=== PATIENT | female | born 1950 | race Caucasian/White ===

== ENCOUNTER → 2023-06-25 12:42 | Outpatient (REF) | payer MEDICARE, OTHER, SELFPAY | LOC: RAD 12:42 | PROVIDERS: ATTENDING PHYSICIAN Surgery Vascular Surgery; FAMILY PHYSICIAN Family Medicine | DX: I77.0 Arteriovenous fistula, acquired (principal) | CPT/HCPCS: 93990 ==

== ENCOUNTER → 2023-07-27 08:10 | Outpatient (REF) | payer MEDICARE, OTHER, SELFPAY | LOC: DHCBC MAIN 08:10 | PROVIDERS: ATTENDING PHYSICIAN Internal Medicine Cardiovascular Disease; FAMILY PHYSICIAN Family Medicine | DX: I50.30 Unspecified diastolic (congestive) heart failure (principal); I34.0 Nonrheumatic mitral (valve) insufficiency | CPT/HCPCS: 93306 ==

== ENCOUNTER → 2023-10-18 09:00 | Outpatient (REF) | payer MEDICARE, OTHER, SELFPAY | LOC: RAD 09:00 | PROVIDERS: ATTENDING PHYSICIAN Surgery Vascular Surgery; FAMILY PHYSICIAN Family Medicine | DX: I77.0 Arteriovenous fistula, acquired (principal) | CPT/HCPCS: 93990 ==

== ENCOUNTER → 2023-10-30 10:55 | Outpatient (REF) | payer MEDICARE, OTHER, SELFPAY | LOC: RAD 10:55 | PROVIDERS: ATTENDING PHYSICIAN Surgery Vascular Surgery; FAMILY PHYSICIAN Family Medicine | DX: T82.898A Other specified complication of vascular prosthetic devices, implants and grafts, initial encounter (principal); N18.6 End stage renal disease; I77.0 Arteriovenous fistula, acquired; Z99.2 Dependence on renal dialysis; J96.01 Acute respiratory failure with hypoxia | CPT/HCPCS: 93970 ==

== ENCOUNTER 2023-11-01 19:43 | Inpatient (IN) | payer MEDICARE, OTHER, SELFPAY ==
[2023-11-01] VITALS (24 sets, daily range): BP systolic 0–182; BP diastolic 51–122; BMI 35.7
[2023-11-01] MEDS: PERIDEX 0.12% ORAL RINSE 15 ML PO (09:58)
[2023-11-01] MEDS: BACTROBAN NASAL 1 GRAM NASAL (09:59)
[2023-11-01] MEDS: NSS 500 IV (10:08)
[2023-11-01 10:18] LABS: Glucose - Point of Care 128 mg/dl (70-99)
[2023-11-01 10:27] LABS: Hematocrit 31.1 % (37.0-47.0); Mean Corp Hgb Conc. 32.2 g/dL (33.0-37.0); Mean Corpuscular Hgb 31.6 pg (27.0-31.0); Mean Corpuscular Volume 98.4 fL (81.0-99.0); Mean Platelet Volume 9.9 fL (7.4-10.4); Platelet Count 221 10^3/uL (130-400); Red Blood Cell Count 3.16 10^6/uL (4.20-5.40); Red Cell Dist. Width 16.6 % (11.5-14.5); White Blood Cell Count 10.5 10^3/uL (4.8-10.8)
[2023-11-01 10:36] LABS: APTT 31.8 Sec (23.4-35.0); INR 1.09; PT 14.2 Sec (11.4-14.6)
[2023-11-01 10:37] LABS: Blood Urea Nitrogen 22 mg/dl (7-17); Calcium 9.2 mg/dl (8.4-10.2); Carbon Dioxide 27 mmol/L (22-30); Chloride 97 mmol/L (98-107); Estimated Creatinine Clearance 22 ml/min; Glucose 125 mg/dl (70-99); Potassium 3.8 mmol/L (3.5-5.1); Sodium 134 mmol/L (135-145); eGFR 20.55
--- NOTE | 2023-11-01 13:45 | W.SUR.PREOP ---
Pre-Operative Surgical Note
-
I have examined this patient prior to the performance of the scheduled procedure.
The patient's condition is unchanged from the time of the current History and
Physical and the patient is able to undergo the scheduled procedure.
[2023-11-01 16:35] LABS: Glucose - Point of Care 125 mg/dl (70-99)
--- NOTE | 2023-11-01 17:36 | W.SUR.POST ---
Surgical Immediate Post Op
Note
Pre Op Diagnosis: Steal syndrome
Post Op Diagnosis: Same
Procedure Performed: Left upper extremity DRIL procedure, on table LUE diagnostic arteriogram
Primary Surgeon: Eusebio
Assists: MARK ANTHONY Brown and MARK ANTHONY Villagomez
Anesthesia: LMA
Estimated Blood Loss: 30 cc
Fluids: See anesthesia flowsheet
Drains/Shunts: MATILDA drain right groin
Specimens/Cultures: None
Doppler/Duplex/Angio (Y/N): Y
Complications: None
Operative Findings: + Thrill, palpable radial pulse
[2023-11-01 18:05] LABS: Glucose - Point of Care 157 mg/dl (70-99)
[2023-11-01 18:57] LABS: Hematocrit 29.8 % (37.0-47.0); Hemoglobin 9.4 g/dL (12.0-16.0); Mean Corp Hgb Conc. 31.5 g/dL (33.0-37.0); Mean Corpuscular Hgb 30.9 pg (27.0-31.0); Mean Platelet Volume 9.4 fL (7.4-10.4); Platelet Count 200 10^3/uL (130-400); Red Blood Cell Count 3.04 10^6/uL (4.20-5.40); Red Cell Dist. Width 16.5 % (11.5-14.5); White Blood Cell Count 15.5 10^3/uL (4.8-10.8)
--- NOTE | 2023-11-01 19:00 | SUR.PHASEI ---
Dr. Kaplan notified pt with total of 200ml bloody drainage from right upper leg MATILDA drain. Awaiting further orders
[2023-11-01 19:08] LABS: INR 1.22; PT 15.4 Sec (11.4-14.6)
[2023-11-01 19:11] LABS: APTT 112.5 Sec (23.4-35.0)
--- NOTE | 2023-11-01 19:20 | SUR.PHASEI ---
Dr. Kaplan updated via phone on pt condition, Heparin held as ordered and MATILDA drain suction decreased per Dr. Kaplan. Per Dr. Kaplan, pt stable for discharge to ICU.
[2023-11-01] MEDS: NSS 1000 IV (19:21)
[2023-11-01 20:02] LABS: Blood Urea Nitrogen 26 mg/dl (7-17); Calcium 8.9 mg/dl (8.4-10.2); Carbon Dioxide 25 mmol/L (22-30); Chloride 98 mmol/L (98-107); Estimated Creatinine Clearance 19 ml/min; Glucose 160 mg/dl (70-99); Sodium 134 mmol/L (135-145); eGFR 17.84
[2023-11-01] MEDS: CRESTOR 10 MG PO (21:44)
--- NOTE | 2023-11-01 22:11 | PTCARENOTE ---
pt arrived to floor postop DRIL procedure, pt AAOx3, denies pain, neurovascular checks per order, +pulses, denies numbness and tingling, SR on monitor, refused BP med, 2L NC, denies SOB, sips of clears tolerated, lungs diminished, HOB flat at the
moment, howell to be removed POD #2, diminished urine output per pt, on dialysis, R chest wall port and L arm AV fistula +B/T, NS running at 80ml/hr, L arm surgical site ecchymotic with +1 edema, mild drainage noted, R groin with MATILDA drain, SUKHWINDER and
margarette wrapped. on assessment margarette wrap was removed and within 15 minutes bloody drainage was noted on R thigh dressing and firm non discolored area to the Right of the dressing was noted, PHOTOGEOLOGIST made aware and site was marked. called for updates and was
informed of this new finding, no new orders at this time. was at bedside, pt oriented to room, and call herrera in reach.
[2023-11-02] VITALS (57 sets, daily range): BP systolic 91–146; BP diastolic 42–89; BMI 35.9
--- NOTE | 2023-11-02 00:14 | PTCARENOTE ---
no changes from prior assessment, +pulses, denies pain and SOB, call herrera in reach.
[2023-11-02] MEDS: NSS 1000 IV (03:34)
[2023-11-02 03:36] LABS: Hematocrit 24.3 % (37.0-47.0); Hemoglobin 7.6 g/dL (12.0-16.0); Mean Corp Hgb Conc. 31.3 g/dL (33.0-37.0); Mean Corpuscular Hgb 31.5 pg (27.0-31.0); Mean Corpuscular Volume 100.8 fL (81.0-99.0); Mean Platelet Volume 10.3 fL (7.4-10.4); Platelet Count 200 10^3/uL (130-400); Red Blood Cell Count 2.41 10^6/uL (4.20-5.40); Red Cell Dist. Width 16.2 % (11.5-14.5); White Blood Cell Count 16.7 10^3/uL (4.8-10.8)
[2023-11-02 03:47] LABS: INR 1.25; PT 15.8 Sec (11.4-14.6)
[2023-11-02 03:48] LABS: APTT 30.1 Sec (23.4-35.0)
[2023-11-02 03:59] LABS: Blood Urea Nitrogen 31 mg/dl (7-17); Carbon Dioxide 25 mmol/L (22-30); Chloride 100 mmol/L (98-107); Estimated Creatinine Clearance 17 ml/min; Glucose 145 mg/dl (70-99); Magnesium 1.9 mg/dl (1.6-2.3); Phosphorus 5.5 mg/dl (2.5-4.5); Potassium 4.4 mmol/L (3.5-5.1); Sodium 133 mmol/L (135-145); eGFR 15.72
--- NOTE | 2023-11-02 04:43 | PTCARENOTE ---
no changes from prior assessment
--- NOTE | 2023-11-02 07:16 | CON.INTV ---
Consultation
Consultation Request
Date/Time Consultation Requested: 11/01/23
Date/Time Consultation Performed: 11/02/23
Performing Provider: Joy
Reason for Consultation: Critical Care
Medical History
-
History of Present Illness:
Patient is a 73-year-old female with previous history of CHF, diabetes, hypertension, uterine cancer, CKD stage V/diabetic nephropathy status post LUE AVF placement 05/2022 on HD, with chronic complaints of left hand pain (worsened while on HD)
suspected of having steal syndrome. Underwent elective distal revascularization interval ligation (DRIL) of left upper extremity 11/01/2023. Postoperatively transferred to ICU for further management.
.
Past Medical History
Past Medical History: Other (see below)
Social History
Tobacco: Non-smoker
Alcohol: None
Drug: None
Family History
Family History: Reviewed & Not Pertinent
Allergies / Home Medications
Allergies
Allergy/AdvReac Type Severity Reaction Status Date / Time
adhesive tape Allergy Rash Verified 11/01/23 19:51
metformin AdvReac cramps in Verified 11/01/23 19:51
stomach
morphine AdvReac Nausea Verified 11/01/23 19:51
Home Medications
�Medication �Instructions �Recorded �Confirmed �Last Taken �Type
methimazole 5 mg tablet 2.5 mg PO DAILY Thyroid 02/20/18 11/01/23 10/31/23 09:00 History
carvedilol 25 mg tablet (Coreg) 3.125 mg PO BID PRN Heart 12/31/20 11/01/23 2 Days Ago History
disease/condition ~10/30/23
rosuvastatin 10 mg tablet 10 mg PO QPM High cholesterol 12/31/20 11/01/23 10/31/23 21:00 History
vit C 250 mg-vit E 90 mg-zinc 40 1 ea PO DAILY Eye condition 12/31/20 11/01/23 10/31/23 09:00 History
mg-copper 1 [id number]
capsule (PreserVision AREDS-2)
aspirin 81 mg tablet,delayed 81 mg PO DAILY Blood clot 08/17/21 11/01/23 10/31/23 08:00 Rx
release (Yoni Low Dose Aspirin) prevention/tx ##0
cholecalciferol (vitamin D3) 125 125 mcg PO MOWEFR Supplement 06/02/22 11/01/23 10/31/23 09:00 History
mcg (5,000 unit) tablet (Vitamin
D3)
sennosides 8.6 mg-docusate sodium 1 tab-cap PO BIDPRN PRN 06/02/22 11/01/23 3 Weeks Ago History
50 mg tablet constipation ~10/11/23
calcitriol 0.25 mcg capsule 0.25 mcg PO Q48H@0800 Kidney 05/03/23 11/01/23 10/31/23 09:00 History
Disease
calcium acetate 667 mg tablet 667 mg PO 1700 Kidney Disease 05/03/23 11/01/23 10/31/23 17:00 History
furosemide 40 mg tablet (Lasix) 20 mg PO SUTUTHSA 10/26/23 11/01/23 10/30/23 09:00 History
polyethylene glycol 3350 17 gram 17 g PO DAILY 10/26/23 11/01/23 10/31/23 09:00 History
oral powder packet (Miralax)
sertraline 100 mg tablet 100 mg PO DAILY 10/26/23 11/01/23 10/31/23 14:00 History
Review of Systems
-
History Source: Patient
All other systems: Negative unless noted
Vitals / Labs / Diagnostic Testing
Vital Signs
Temp Pulse Resp BP Pulse Ox
97.7 F 93 18 121/51 97
11/02/23 03:06 11/02/23 06:30 11/02/23 06:30 11/02/23 06:00 11/02/23 06:30
Lab Data
11/02/23 02:54
11/02/23 02:54
Laboratory Results
11/01/23 11/01/23 11/02/23
10:10 18:52 02:54
PT 14.2 15.4 H 15.8 H
INR 1.09 1.22 1.25
APTT 31.8 112.5 H 30.1
Diagnostic Testing:
Physical Exam
-
HEENT: Normocephalic, Anicteric and Moist Mucous Membranes
Cardiovascular: S1/S2 and Regular Rhythm
Respiratory: Clear and Non-Labored Respirations
GI: Soft, Non Distended and Non Tender
Neurology: Awake, Alert, Oriented, AO x 3 and No Motor Deficits
Skin: Warm, Dry and Good Color
General: Comfortable and Other (NAD)
Assessment
-
Patient is a 73-year-old female with previous history of CHF, diabetes, hypertension, uterine cancer, CKD stage V/diabetic nephropathy status post LUE AVF placement 05/2022 on HD, with chronic complaints of left hand pain (worsened while on HD)
suspected of having steal syndrome. Underwent elective distal revascularization interval ligation (DRIL) of left upper extremity 11/01/2023. Postoperatively transferred to ICU for further management.
Steal syndrome s/p Left upper extremity DRIL procedure, LUE diagnostic arteriogram 11/01/23
Leukocytosis, likely postop
Postoperative anemia
Hyponatremia, mild
Hyperglycemia
Conditions present SHORT ORDER COOK
Recently diagnosed uterine cancer
CHF
Hyperlipidemia
Allergic rhinitis
Type 2 diabetes
Hypertension
CAD
Thoracic aortic atherosclerosis
Hypothyroidism/multinodular goiter
CKD stage IV on HD status post AVF placement 06/07/2022
Diabetic nephropathy
Colon cancer stage I status post colectomy on 04/04/2021
Right parotidectomy, facial nerve 03/07/2018
Ostomy reversal 10/2021
Hysterectomy and BLO 08/2023
Obesity, BMI 35
Plan
Patient is s/p DRIL by vascular surgery service, POD #1
Continue observation following procedure
Follow neurovascular checks per protocol
Follow BP monitoring and parameters as set by primary team
Cardiac history noted
Can add midodrine for HD
Monitor on telemetry
Pain control per protocol
RASS goal 0
No prior history of pulmonary disease
CXR reviewed indicating no acute disease
No prior PFTs for review
Encouraged IS
Diet advancement per protocol
Aspiration precautions
GI prophylaxis if indicated for stress ulcer prevention in the critically ill
ESRD on HD
Renal consult obtained, HD planning today
Replete electrolytes as needed
No signs/symptoms suspicious for infectious etiology at this time
Will observe off antibiotics for now
Follow temperatures/CBC
Hb and platelets postoperatively stable
DVT prophylaxis recommended if not contraindicated based on procedural history -- heparin SQ and mechanical SCDs
Encouraged OOB/PT/OT/ambulation once cleared by surgical team
We will follow
Diagnostic Data
Chest X-Ray: 11/02/23- Low lung volumes. No acute cardiopulmonary process.
CT Scan: CAP 05/16/22- IMPRESSION:
1). There is partial colonic resection with bowel anastomosis at the rectosigmoid junction
2). There is no evidence of metastatic disease or adenopathy in the chest abdomen or pelvis.
3). The stability of the 2.5 mm perifissural pulmonary nodule in the anterolateral aspect of the right lower lobe dating back to 08/16/2020 suggests that it is benign
4). Small bilateral pleural effusions, new when compared with the prior study
5).There is stable slightly enlarged heterogeneous thyroid which, if clinically indicated, could be best further evaluated and followed with thyroid ultrasound
6).There is cholelithiasis as well as high density material throughout the entirety of the gallbladder, likely reflecting biliary sludge. This is stable when compared with the prior study
7). There is stable mild bilateral cortical volume loss with mild perinephric inflammatory stranding.
8). Atherosclerosis
Echo: 07/27/23- Normal left ventricular size and systolic function without regional wall motion abnormality. Estimated LVEF 60-65%. Stage II diastolic dysfunction suggestive of abnormal relaxation and increased filling pressures. Dense posterior
mitral annular calcification. There is a calcifed mobile echodensity associated with the ventricular side of the mitral valve. Measures 1.7 cm x 0.9 cm. Differential diagnosis includes calcified ruptured chordal structures, thrombus, vs less
likely calcified vegetation. Moderate mitral regurgitation. Mild/moderate tricuspid regurgitation. Severely elevated PASP. Estimated pulmonary artery pressure of 60 mmHg assuming a right atrial pressure of 8 mmHg.
Compared to 09/10/20: there is new mobile echodensity associated with the mitral valve. MR has progressed from mild/moderate to moderate. Mild TR has progressed to mild/moderate. PASP has increased from 35 mmHg to 60 mmHg.
PFT's:
Reports and relevant images were personally reviewed.
-----
Critical care time 58 mins -- this includes review of history, physical exam, medications, hemodynamic/ventilator parameters, laboratory data, imaging and discussion with house staff, pharmacy, respiratory therapy, reservations sales supervisor, and nursing.
--- NOTE | 2023-11-02 07:40 | PTCARENOTE ---
Assumed care of pt at 0715 following shift report. Bedside wound and pulse assessment completed w/ outgoing shift RN. No changes noted from previous assessment findings. Post Op dressings intact w/ shadow drainage noted. Ecchymosis noted around
wound Lt deonna and Rt upper arm. Soft to palpation. Pt denies c/o pain. On O2 at 2l/min w/ POx 100%. Pt placed on RA w/ POx maintained 92-97%. No SOB. Min patent and draining scant amount yellow urine. Physical assessment completed as documented.
Comfort care provided, call herrera w/in pt reach and safe environment maintained.
[2023-11-02 08:30] LABS: Glucose - Point of Care 140 mg/dl (70-99)
[2023-11-02] MEDS: MIRALAX PO (08:34)
[2023-11-02] MEDS: ASPIR LOW (ENTERIC COATED) 81 MG PO (08:37)
[2023-11-02] MEDS: ROCALTROL 0.25 MCG PO (08:37)
[2023-11-02] MEDS: TAPAZOLE 2.5 MG PO (08:37)
[2023-11-02] MEDS: OCUVITE SOFTGEL 1 CAP PO (08:37)
[2023-11-02] MEDS: VITAMIN D3 (cholecalciferol) 125 MCG PO (08:43)
[2023-11-02] MEDS: ZOLOFT 100 MG PO (08:43)
--- NOTE | 2023-11-02 08:59 | W.PN.VS ---
Today's Communication / Plan
-
Patient seen evaluated bedside with Dr. Avinash Kaplan, below plan reviewed with attending.
Assessment/Plan
-
Assessment: 73-year-old female POD #1 Left upper extremity DRIL procedure, on table LUE diagnostic arteriogram
Plan:
Nephrology consultation for HD management, will receive HD today
Given decrease in hemoglobin we will transfuse 1 unit packed red blood cells now and a second unit with HD for total of 2 units of packed red blood cells
Discontinue Min catheter
Discontinue IV fluids
Continue neurovascular checks
Can get out of bed to chair with progression ambulation as tolerated
Continue MATILDA drain
Can advance diet
Subjective Data
-
Date of Service: November 02, 2023
Patient seen and evaluated at bedside, reports improvement in left hand pain and coolness. Offers no complaints, reports adequate postoperative pain management. Denies nausea, vomiting, fever, and chills. Reports eagerness for diet to be
advanced.
Objective Data
-
Vital Signs
Temp Pulse Resp BP Pulse Ox
97.8 F 94 16 108/53 96
11/02/23 08:29 11/02/23 08:33 11/02/23 08:29 11/02/23 08:33 11/02/23 08:15
Intake and Output
11/01/23 11/02/23 11/03/23
06:59 06:59 06:59
Intake Total 310 / 310 0 / 0
Output Total 400 / 400
Balance -90 / -90 0 / 0
Intake:
Oral fluids 20 / 20
IV fluids (Total) 290 / 290
NSS 290 / 290
Blood Product Amount Infused ( 0 / 0
mL)
Packed Rbc Leukoreduced Unit 0 / 0
[id number]
Output:
Drain Output (Total) 270 / 270
Right Upper Leg [place] 270 / 270
Urine, Min 130 / 130
Urine, Voided 0 / 0
Lab Results
11/02/23 02:54
11/02/23 02:54
Calcium 8.0 mg/dl (8.4-10.2) L 11/02/23 02:54
Phosphorus 5.5 mg/dl (2.5-4.5) H 11/02/23 02:54
Magnesium 1.9 mg/dl (1.6-2.3) 11/02/23 02:54
Physical Exam
-
AAOx3, no apparent distress resting bed comfortably
No tachycardia
No dyspnea
ABD rotund, nondistended, nontender
Left upper extremity surgical site with ecchymosis, no evidence of hematoma, all surrounding compartments soft, AVF with positive thrill, radial pulse with excellent Doppler signal, hand warm
Right lower extremity saphenectomy site CDI, all surrounding compartments soft, MATILDA drain with serosanguineous output
--- NOTE | 2023-11-02 10:38 | PTCARENOTE ---
Pt contineus to rest quietly in bed. here to visit; questions answered and plan of care discussed. Pt reports intermittent 'ache' rates at worst 4/10 to varying locations of Lt hand. Emilee HOPSON notified- no new orders received. First of two
ordered units PRBCs infusing w/o complication. Pt remains on RA w/ POx 92-97%. Tolerating advanced diet. No additional changes or complaints.
--- NOTE | 2023-11-02 11:27 | OR.RPT ---
Operative Report
Operative Report
PROCEDURE DATE: 11/01/2023
Preoperative diagnosis:
1. End-stage renal disease on hemodialysis.
2. Left upper extremity ischemic steal syndrome from AV fistula.
Postoperative diagnosis: Same
Procedure:
1. Arch aortogram via right common femoral artery puncture.
2. Selective left subclavian artery and brachial artery catheterization, and left upper extremity arteriogram.
3. Left upper extremity DRIL procedure (distal revascularization with interval ligation) with reversed right greater saphenous vein conduit. (Bypass from mid brachial artery to proximal radial artery).
4. Redo dissection left antecubital fossa arteries.
Surgeon: Eusebio
Bin Cleaner: KRISTAN Villagomez and KRISTAN Brown both required for all aspects of procedure including assistance with greater saphenous vein harvest, traction/countertraction, following of suture line, assistance with closure.
Complications: None
Anesthesia: General
Fluoroscopy: Time 4.13 minutes, 31 mGy, DAP 9.27
Indications for procedure:
History of left upper extremity AV fistula for end-stage renal disease (on hemodialysis. She developed ischemic steal to the left hand. Risk/benefit/alternatives of drill procedure and angiography were also discussed. Patient understood all wish
to proceed.
Description of procedure:
Patient was identified brought to the operating room placed on the table in supine position. After the adequate administration of anesthesia she was prepped and draped in the standard surgical fashion. A standard preoperative timeout was
undertaken and everybody was in agreement the plan. The right common femoral artery was punctured under direct duplex ultrasound guidance. A 5 [place] sheath was then advanced over a 0.035 inch wire. A pigtail catheter was advanced into the
ascending aorta over the wire. Arch aortogram was obtained. Demonstrated patent aortic arch vessels. Left subclavian artery was marked on the screen. Vertebral artery was easily seen. The patient was given an appropriate dose of heparin. H1
catheter was then used to selectively catheterize the left subclavian artery. Angiogram demonstrated patent left subclavian and axillary arteries. No significant stenosis was noted. Vertebral artery as noted was visualized well. No significant
stenosis at the origin of the vertebral artery. Using a flopping on hydrophilic wire, the left brachial artery was then catheterized. I advanced the glide catheter. Left upper extremity arteriogram demonstrated patent brachial artery. Patent
anastomosis to the AV fistula. No significant stenosis was noted in the fistula. The fistula anastomosis was noted at the bifurcation of the brachial artery to the radial/ulnar artery. Filling into the radial/ulnar arteries was minimal. I could
not see any filling into the forearm. I therefore then obtained images again with compression of the fistula and now could see filling of the radial and ulnar. There is an interosseous branch from the ulnar artery. Both filled reasonably to the
distal forearm/wrist. Both vessels were somewhat small however. The radial artery actually appeared to be the dominant artery filling the hand and the palmar arch. The ulnar artery filled into the ulnar side of the hand but gave relatively poor
collateralization to the digital arteries. Therefore at this point I felt that there was no room to bypass to the brachial artery distal to the fistula origin given that arose from the bifurcation. Given that the radial artery was the better
artery filling the hand, I felt that bypass to this artery would be better. At this point, satisfied with my imaging, the catheters and wires were withdrawn. A 6 [place] Angio-Seal was used to seal the right common femoral artery. Hemostasis was
noted. I examined with an ultrasound to confirm hemostasis as well.
At this point I then turned my attention to the upper arm. A longitudinal incision was made in the mid left upper arm that was carried through skin subcutaneous tissue. The patient had a significant amount of subcutaneous fatty tissue. Therefore
the depth to the brachial sheath was quite extensive. However I was able to dissect through the brachial sheath and identify the brachial artery carefully dissected away from surrounding structures and great care to avoid any injury to structures.
Vesseloops passed around approximately distally. Next I made a longitudinal incision in the proximal volar aspect of the forearm. This was carried through skin subcutaneous tissue. I encountered some scar tissue but was able to dissect down to
the level of the outflow vein of the fistula. Once I encountered this, I then was able to dissect through the scar tissue to identify the anastomosis. I very carefully dissected out the brachial artery proximally and passed a vessel loop around
it. I then identified the ulnar artery first. It was able to carefully circumferentially dissected and passed a vessel parotid. The radial artery was then identified. I dissected the radial artery to the level of the first branch about 1 to 2 cm
beyond the origin. Both the branch and the main radial artery were controlled with Vesseloops. Of note the radial artery was noted to be very small. Initially I was a little bit concerned that this may be too small to perform a bypass, but it was
noted to be pulsatile when I compress the fistula and I felt it was reasonable. In addition, while the ulnar artery at the origin was reasonable size (slightly larger than the radial), based on the angiogram I could see that the main ulnar was not
significantly different in terms of size once the interosseous branch branched off.
Via a right proximal thigh incision medially, the greater saphenous vein was identified deep in the subcutaneous tissue (again patient had significant fatty subcutaneous tissue that had to dissect through to get to the level of the saphenous
sheath). The greater saphenous vein was mobilized for a suitable segment, ligating any branches between silk ties and clips and then dividing them. Once we had mobilized the suitable segment, the vein was ligated proximally distally with silk ties
and clips. It was then transected proximally distally. The vein was then distended under heparinized saline and it distended well. We elected to orient the vein in a reverse fashion. At this point a subcutaneous tunnel was created between the 2
arterial exposure sites and the upper arm. An umbilical tape was passed through. The patient was now given an additional dose of heparin. I now double up and tight my Vesseloops on the brachial artery in the mid upper arm incision. An 11 blade
was used to make an arteriotomy extended using a Fox scissor. I then spatulated the vein and sewed an end to side anastomosis using a running 6-0 Prolene suture. I completed and tied down the suture line and then released flow in the [place]
system. There is now excellent pulsatile flow into the vein graft. It was clamped distally. I marked the anterior surface under distention to avoid any kinking or twisting and then passed it through the tunnel. I confirm no kinking or twisting.
I now ligated the radial artery just distal to the anastomosis of the fistula, maintaining the ulnar artery in continuity. A bulldog clamp was placed on the distal radial artery. I then spatulated the radial artery. Of note as I noted before it
was very small. I then spatulated the distal aspect of the vein graft and sewed an end and spatulated anastomosis between the vein graft and the artery using a running 7-0 Prolene suture. I gently inserted a fine hemostat across the toe of the
anastomosis to confirm that it was nicely patent and it was (I did this given the small size of the radial artery to confirm). I now backbled the [place] radial artery and I flushed out the graft. I irrigated heparinized saline and completed and
tied down my suture line. Next I released my clamp on the radial artery distally. Then I released my bulldog clamp on the vein graft. There is excellent pulsatile flow through the vein graft into the radial artery. There was an excellent Doppler
signal that was graft dependent in the radial artery just distal to the anastomosis. In addition at the wrist I could Doppler an excellent phasic radial artery Doppler signal that was graft dependent. In addition subsequently I was able to palpate
it pulse at the wrist. At this point I was very satisfied. All incision sites were irrigated. Hemostasis was fully achieved. The arm incisions were closed with 3-0 Vicryl followed by skin clips. The saphenectomy site was noted to be slightly
oozy, however was able to achieve full hemostasis. Given the depth of the dissection, I elected to place a round Trace drain in the saphenectomy bed which was brought out through a separate stab incision and secured to the skin with a nylon suture.
The saphenectomy site was then closed in layers using 2-0 Vicryl followed by 3-0 Vicryl followed by skin clips. The patient tolerated the procedure well.
[2023-11-02] MEDS: ProAmatine 5 MG PO (11:40)
--- NOTE | 2023-11-02 12:04 | W.CON.NEPH ---
Consultation
-
Date/Time Consultation Requested: November 02, 2023 7 AM
Date/Time Consultation Performed: November 02, 2023 8 AM
Requesting Provider: Dr. Kaplan
Performing Provider: Dr. Levy
Reason for Consultation: ESRD
Medical History
-
Chief Complaint: Status post vascular surgery
History of Present Illness:
This is a 73-year-old female who has previously been seen by Dr. Alegria in our office who ultimately transitioned her care to [facility] given distance. She started dialysis 2 months ago. She did have an AV fistula in the left arm though this
was found not to be usable and she had a dialysis catheter placed in the right chest wall. She says that she has had no significant issues with dialysis though since starting her blood pressures have been running on the lower side. However given
the dysfunction of her AV fistula she began having steal symptoms. She followed up with vascular surgery and the decision was for a DRIL procedure. This was performed yesterday. She is due for dialysis today. She is also noted to be
significantly anemic with a hemoglobin of 7.6 and is receiving a transfusion. Her blood pressures have otherwise been fairly stable without midodrine.
Past Medical History
1. ESRD
2. 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
retinopathy.
3. Hypertension.
4. Hypercholesterolemia.
5. Secondary hyperparathyroidism.
6. Metabolic acidosis.
7. History of heart failure, type unknown.
8. History of pleural effusion.
9. Allergic rhinitis.
10. Anxiety.
11. Carotid atherosclerosis.
12. Thoracic aortic atherosclerosis.
13. Hyperthyroidism.
14. Multinodular goiter.
15. Nephrotic proteinuria.
16. Colon cancer, status post colectomy March 2021 and colostomy
with colostomy reversal in October 2021.
17. Prior COVID.
18. Anemia of CKD, on ELISHA.
19. AV fistula, left upper arm, May 2022.
20. AV fistula superficialization October 2022.
21. section x2.
22. Right parotidectomy February 2018.
Social History
Tobacco: Non-Smoker
Alcohol: None
Family History
Family History: Not Pertinent
Allergies / Home Medications
Allergy/AdvReac Type Severity Reaction Status Date / Time
adhesive tape Allergy Rash Verified 11/01/23 19:51
metformin AdvReac cramps in Verified 11/01/23 19:51
stomach
morphine AdvReac Nausea Verified 11/01/23 19:51
�Medication �Instructions �Recorded �Confirmed �Type
methimazole 5 mg tablet 2.5 mg PO DAILY Thyroid 02/20/18 11/01/23 History
carvedilol 25 mg tablet (Coreg) 3.125 mg PO BID PRN Heart 12/31/20 11/01/23 History
disease/condition
rosuvastatin 10 mg tablet 10 mg PO QPM High cholesterol 12/31/20 11/01/23 History
vit C 250 mg-vit E 90 mg-zinc 40 1 ea PO DAILY Eye condition 12/31/20 11/01/23 History
mg-copper 1 [id number]
capsule (PreserVision AREDS-2)
aspirin 81 mg tablet,delayed 81 mg PO DAILY Blood clot 08/17/21 11/01/23 Rx
release (Yoni Low Dose Aspirin) prevention/tx ##0
cholecalciferol (vitamin D3) 125 125 mcg PO MOWEFR Supplement 06/02/22 11/01/23 History
mcg (5,000 unit) tablet (Vitamin
D3)
sennosides 8.6 mg-docusate sodium 1 tab-cap PO BIDPRN PRN 06/02/22 11/01/23 History
50 mg tablet constipation
calcitriol 0.25 mcg capsule 0.25 mcg PO Q48H@0800 Kidney 05/03/23 11/01/23 History
Disease
calcium acetate 667 mg tablet 667 mg PO 1700 Kidney Disease 05/03/23 11/01/23 History
furosemide 40 mg tablet (Lasix) 20 mg PO SUTUTHSA 10/26/23 11/01/23 History
polyethylene glycol 3350 17 gram 17 g PO DAILY 10/26/23 11/01/23 History
oral powder packet (Miralax)
sertraline 100 mg tablet 100 mg PO DAILY 10/26/23 11/01/23 History
Review of Systems
-
No chest pain or shortness of breath. No fatigue. Pain in left arm improved
All other systems: Negative unless noted
Physical Exam
Vital Signs
Vital Signs
Temp Pulse Resp BP Pulse Ox
98.5 F 97 18 100/44 94
11/02/23 11:14 11/02/23 11:40 11/02/23 10:47 11/02/23 11:40 11/02/23 10:19
Lab Results
WBC 16.7 10^3/uL (4.8-10.8) H 11/02/23 02:54
RBC 2.41 10^6/uL (4.20-5.40) L 11/02/23 02:54
Hgb 7.6 g/dL (12.0-16.0) L 11/02/23 02:54
Hct 24.3 % (37.0-47.0) L 11/02/23 02:54
Plt Count 200 10^3/uL (130-400) 11/02/23 02:54
Sodium 133 mmol/L (135-145) L 11/02/23 02:54
Potassium 4.4 mmol/L (3.5-5.1) 11/02/23 02:54
Chloride 100 mmol/L (98-107) 11/02/23 02:54
Carbon Dioxide 25 mmol/L (22-30) 11/02/23 02:54
BUN 31 mg/dl (7-17) H 11/02/23 02:54
Creatinine 3.0 mg/dL (0.6-1.0) H 11/02/23 02:54
eGFR 15.72 11/02/23 02:54
Glucose 145 mg/dl (70-99) H 11/02/23 02:54
Calcium 8.0 mg/dl (8.4-10.2) L 11/02/23 02:54
Phosphorus 5.5 mg/dl (2.5-4.5) H 11/02/23 02:54
Physical Exam
Patient is awake alert oriented and in no distress. Mood and affect were pleasant, insight and judgment were good. Pupils are equal round and reactive to light, extraocular movements are intact, sclera were anicteric. Hearing was normal, ears and
nose are intact. Oropharynx was clear. Neck was supple with trachea midline and no thyromegaly. Heart was regular rate and rhythm without rubs. Lower extremities without edema. Lungs were clear to auscultation bilaterally and with normal
excursion. Abdomen was soft, nontender, with normal active bowel sounds, and no hepatosplenomegaly. Skin was without rash and with normal turgor. There is some edema in the left upper arm
Data Reviewed
-
Radiology: Image Personally Visualized and interpreted (Chest x-ray on November 02, 2023 by my reading shows no acute disease)
Medical Tests (Nuc Med, Echo etc): Report Reviewed by me (Echocardiogram on July 27, 2023 shows ejection fraction 60% stage II diastolic dysfunction moderate mitral regurgitation moderate tricuspid regurgitation severe pulmonary hypertension)
Labs: Labs Reviewed by me (Hemoglobin 7.6, sodium 133, creatinine 3.0, phosphorus 5.5)
Assessment/Plan
-
Assessment
ESRD
Left AV fistula, DRIL
Anemia
diabetes mellitus type 2
Hyponatremia
Secondary hyperparathyroidism
Plan
Transfuse packed red blood cells
Dialysis today per her usual schedule
Discharge planning
[2023-11-02] MEDS: MANNITOL 25% 12.5 GRAMS IV (12:10)
--- NOTE | 2023-11-02 12:30 | PTCARENOTE ---
Pt returned to bed prior to beginning HD- tolerated increased activity well. HD in progress. Pt tolerating w/o complication. No changes or complaints from previous assessment findings.
[2023-11-02] MEDS: FLEXBUMIN 25% FOR HEMODIALYSIS 12.5 GRAMS IV (12:32)
[2023-11-02] MEDS: RETACRIT 10000 UNITS IV (12:32)
--- NOTE | 2023-11-02 13:03 | W.PN.NEPH.HD ---
Assessment
-
Seen on HD. no complaints. VSS, access ok
Progress Note - Hemodialysis
-
Date of Service: November 02, 2023
Duration: 30 minutes and 3 hours
Potassium Bath: 2
Calcium Bath: 2.5
Opti-Dialyzer: 160
Ultrafiltration: Other (1kg)
Blood Flow: 400
Dialysate Flow: 600
Heparin: no
EPO: [id number]
--- NOTE | 2023-11-02 13:07 | CM ---
CM following re: discharge planning.
Discussed in rounds, reviewed pt's chart, met with pt and pt's spouse at bedside.
Pt is a 73 year old female, admitted with primary dx of POD #1 Left upper extremity DRIL procedure, on table LUE diagnostic arteriogram.
Pt reports she lives with 2SH, 2 steps to enter, has 2 supportive children. Pt reports she ambulates with a walker and a cane, helps as needed. Pt is on HD, [facility], [facility], chair time 5:40 a.m., transports to
and from HD treatment. Pt stated she has been on HD treatment for almost 3 years. Pt reports she is known to [facility].
PT and OT to evaluate the pt to determine a level of care at discharge. pt expressed her feelings regarding returning back home with support.
PCP: Melissa Cooney
Pharmacy: [facility]
D/C plan; most likely return back home with [facility], resumptions of outpatient HD treatment and family support. to transport at discharge.
CM will follow with discharge plan updates as hospitalization progresses
[2023-11-02] MEDS: TYLENOL 650 MG PO (14:46)
[2023-11-02] MEDS: HEPARIN 3400 UNITS INTRACATH (15:12)
--- NOTE | 2023-11-02 16:00 | PTCARENOTE ---
Pt medicated per request w/ Tylenol for c/o Lt hand discomfort (see MAR) w/ reported relief. HD completed and pt assisted OOB to chair. No new complaints or changes noted from previous assessment findings. remains attentive at bedside. Call
herrera w/in pt reach and pt reminded to call and wait for assistance prior to attempting to transfer out of chair.
[2023-11-02 16:46] LABS: Glucose - Point of Care 99 mg/dl (70-99)
--- NOTE | 2023-11-02 20:17 | PTCARENOTE ---
Pt Aox3, VSS, ST on monitor, does not complain of pain at rest but with movement pt is experiencing some pain in the left arm/hand. Pt is OOB to the chair. Left arm with vanita, ecchymotic, tissue is soft, Positive Bruie and thrill at fistula site.
Right groin is also ecchymotic, soft tissue, old drainage on SUKHWINDER dressing, SUKHWINDER device blinking green, MATILDA drain with sanguineous output. Q1 hour neurovascular checks, protocol followed. Pt offers no complaints at this time. and family
members at the bedside.
[2023-11-02] MEDS: CRESTOR 10 MG PO (22:09)
[2023-11-02 23:22] LABS: Glucose - Point of Care 173 mg/dl (70-99)
[2023-11-03] VITALS (12 sets, daily range): BP systolic 112–169; BP diastolic 44–91; PULSE 115–119; O2SAT 97; BMI 35.7
--- NOTE | 2023-11-03 00:30 | PTCARENOTE ---
Pt Aox3, soft spoken, assessment unchanged, Right groin and left arm incisions unchanged, remains soft and ecchymotic with old bloody drainage. Pulses with doppler. Bladder scanned for 0mls, pt does not have urge to urinate.
[2023-11-03] MEDS: TYLENOL 650 MG PO (02:32)
[2023-11-03 05:06] LABS: Hematocrit 26.6 % (37.0-47.0); Hemoglobin 8.7 g/dL (12.0-16.0); Mean Corp Hgb Conc. 32.7 g/dL (33.0-37.0); Mean Corpuscular Volume 91.7 fL (81.0-99.0); Mean Platelet Volume 10.3 fL (7.4-10.4); Platelet Count 166 10^3/uL (130-400); Red Cell Dist. Width 19.4 % (11.5-14.5); White Blood Cell Count 10.3 10^3/uL (4.8-10.8)
[2023-11-03 05:28] LABS: Blood Urea Nitrogen 22 mg/dl (7-17); Calcium 8.5 mg/dl (8.4-10.2); Carbon Dioxide 28 mmol/L (22-30); Chloride 100 mmol/L (98-107); Estimated Creatinine Clearance 23 ml/min; Glucose 122 mg/dl (70-99); Potassium 3.3 mmol/L (3.5-5.1); Sodium 136 mmol/L (135-145); eGFR 21.62
[2023-11-03] MEDS: KCL 40 MEQ PO (07:04)
--- NOTE | 2023-11-03 07:09 | W.PN.INTV ---
Today's Communication / Plan
Recommendations
Doing well, stable on RA/not on pressors
Tolerated HD session with minimal pain
Encouraged OOB/PT/ambulation
Can transfer to tele if ok with team, we will sign off upon transfer
Assessment
-
Patient is a 73-year-old female with previous history of CHF, diabetes, hypertension, uterine cancer, CKD stage V/diabetic nephropathy status post LUE AVF placement 05/2022 on HD, with chronic complaints of left hand pain (worsened while on HD)
suspected of having steal syndrome. Underwent elective distal revascularization interval ligation (DRIL) of left upper extremity 11/01/2023. Postoperatively transferred to ICU for further management.
Steal syndrome s/p Left upper extremity DRIL procedure, LUE diagnostic arteriogram 11/01/23
Leukocytosis, likely postop
Postoperative anemia
Hyponatremia, mild
Hyperglycemia
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
Recently diagnosed uterine cancer
CHF
Hyperlipidemia
Allergic rhinitis
Type 2 diabetes
Hypertension
CAD
Thoracic aortic atherosclerosis
Hypothyroidism/multinodular goiter
CKD stage IV on HD status post AVF placement 06/07/2022
Diabetic nephropathy
Colon cancer stage I status post colectomy on 04/04/2021
Right parotidectomy, facial nerve 03/07/2018
Ostomy reversal 10/2021
Hysterectomy and BLO 08/2023
Obesity, BMI 35
Plan
Patient is s/p DRIL by vascular surgery service, POD #2
Continue observation following procedure
Follow neurovascular checks per protocol
Follow BP monitoring and parameters as set by primary team
Cardiac history noted
Can add midodrine for HD
Monitor on telemetry
Pain control per protocol
RASS goal 0
No prior history of pulmonary disease
CXR reviewed indicating no acute disease
No prior PFTs for review
Encouraged IS
Diet advancement per protocol
Aspiration precautions
GI prophylaxis if indicated for stress ulcer prevention in the critically ill
ESRD on HD, renal following
HD planning, tolerated session yesterday with minimal hand pain
Replete electrolytes as needed
No signs/symptoms suspicious for infectious etiology at this time
Will observe off antibiotics for now
Follow temperatures/CBC
Hb and platelets postoperatively stable
DVT prophylaxis recommended if not contraindicated based on procedural history -- heparin SQ and mechanical SCDs
Encouraged OOB/PT/OT/ambulation once cleared by surgical team
Diagnostic Data
Chest X-Ray: 11/02/23- Low lung volumes. No acute cardiopulmonary process.
CT Scan: CAP 05/16/22- IMPRESSION:
1). There is partial colonic resection with bowel anastomosis at the rectosigmoid junction
2). There is no evidence of metastatic disease or adenopathy in the chest abdomen or pelvis.
3). The stability of the 2.5 mm perifissural pulmonary nodule in the anterolateral aspect of the right lower lobe dating back to 08/16/2020 suggests that it is benign
4). Small bilateral pleural effusions, new when compared with the prior study
5).There is stable slightly enlarged heterogeneous thyroid which, if clinically indicated, could be best further evaluated and followed with thyroid ultrasound
6).There is cholelithiasis as well as high density material throughout the entirety of the gallbladder, likely reflecting biliary sludge. This is stable when compared with the prior study
7). There is stable mild bilateral cortical volume loss with mild perinephric inflammatory stranding.
8). Atherosclerosis
Echo: 07/27/23- Normal left ventricular size and systolic function without regional wall motion abnormality. Estimated LVEF 60-65%. Stage II diastolic dysfunction suggestive of abnormal relaxation and increased filling pressures. Dense posterior
mitral annular calcification. There is a calcifed mobile echodensity associated with the ventricular side of the mitral valve. Measures 1.7 cm x 0.9 cm. Differential diagnosis includes calcified ruptured chordal structures, thrombus, vs less
likely calcified vegetation. Moderate mitral regurgitation. Mild/moderate tricuspid regurgitation. Severely elevated PASP. Estimated pulmonary artery pressure of 60 mmHg assuming a right atrial pressure of 8 mmHg.
Compared to 09/10/20: there is new mobile echodensity associated with the mitral valve. MR has progressed from mild/moderate to moderate. Mild TR has progressed to mild/moderate. PASP has increased from 35 mmHg to 60 mmHg.
PFT's:
Reports and relevant images were personally reviewed.
-----
Critical care time 31 mins -- this includes review of history, physical exam, medications, hemodynamic/ventilator parameters, laboratory data, imaging and discussion with house staff, pharmacy, respiratory therapy, mobile nurse, and nursing.
Subjective Dataa
Subjective Data
Date of Service:
Date of Service: November 03, 2023
Chief Complaint: Cleaning Matron Follow Up
Subjective:
no acute events on, feels great
tolerated full HD session
stable on RA
wants to go home
Objective Data
Data Reviewed
Vital Signs / I&O / Oxygen:
Vital Signs
Temp Pulse Resp BP Pulse Ox
97.7 F 106 19 141/57 95
11/03/23 03:17 11/03/23 04:00 11/03/23 04:00 11/03/23 04:00 11/02/23 20:00
Intake and Output
11/02/23 11/03/23 11/04/23
06:59 06:59 06:59
Intake Total 310 / 390 1140 / 1140
Output Total 400 / 400 70 / 70
Balance -90 / -10 1070 / 1070
SaO2 95
Nasal Cannula flow liters per 2
minute
Physical Exam
General: Comfortable and Other (NAD)
HEENT: Normocephalic, Anicteric and Moist Mucous Membranes
Cardiovascular: S1-S2 and Regular Rhythm
Respiratory: Clear and Non-Labored Respirations
GI: Soft, Non Distended and Non Tender
Neurology: Awake, Alert, Oriented, AO x 3 and No Motor Deficits
Skin: Warm, Dry and Good Color
Labs/Micro/Reports
Lab Data
11/03/23 04:45
11/03/23 04:45
[2023-11-03] MEDS: TAPAZOLE 2.5 MG PO (07:58)
[2023-11-03] MEDS: MIRALAX 17 GRAMS PO (07:58)
[2023-11-03] MEDS: ZOLOFT 100 MG PO (07:58)
[2023-11-03] MEDS: OCUVITE SOFTGEL 1 CAP PO (07:58)
[2023-11-03] MEDS: ASPIR LOW (ENTERIC COATED) 81 MG PO (07:58)
--- NOTE | 2023-11-03 08:00 | PTCARENOTE ---
Received pt. @ change of shift. Pt. drowsy, awakens to verbal stimuli; oriented x3; c/o mild 'burning' pain in palm of L hand. LUE and RLE neurovascular checks completed w off-going RN- see flow sheet. SR on monitor. SpO2 97% on RA. Assisted x2 w
RW to BSC for cont BM. Anuric. S/P BSC, assisted into chair; generalized weakness noted. Tolerating chair position. L arm w gauze/tegaderm w old drainage; vanita c/d/i; ecchymotic area soft/not increasing in size per plant scientist RN. R groin
SUKHWINDER dressing intact w old drainage; green light blinking. R groin MATILDA drain w small amt of sang drainage. Ecchymotic area present around R groin dressing; also not increased in size per plant scientist RN. Remains OOB to chair. Call javier w in reach.
--- NOTE | 2023-11-03 08:51 | W.PN.NEPH.PH ---
Today's Communication / Plan
-
follow hgb
Assessment/Plan
-
Assessment
ESRD
Left AV fistula, DRIL
Anemia
diabetes mellitus type 2
Hyponatremia
Secondary hyperparathyroidism
Plan
Transfuse prn
Dialysis due sunday
-
-
Date of Service: November 03, 2023
CC / HPI / ROS
-
Chief Complaint:
ESRD
History of Present Illness:
BP stable this am
tolerated HD yesterday
Hgb up to 8.7 after transfusion
Review of Systems:
no CP/SOB
Labs
-
Labs:
WBC 10.3 10^3/uL (4.8-10.8) 11/03/23 04:45
RBC 2.90 10^6/uL (4.20-5.40) L 11/03/23 04:45
Hgb 8.7 g/dL (12.0-16.0) L 11/03/23 04:45
Hct 26.6 % (37.0-47.0) L 11/03/23 04:45
Plt Count 166 10^3/uL (130-400) 11/03/23 04:45
Sodium 136 mmol/L (135-145) 11/03/23 04:45
Potassium 3.3 mmol/L (3.5-5.1) L 11/03/23 04:45
Chloride 100 mmol/L (98-107) 11/03/23 04:45
Carbon Dioxide 28 mmol/L (22-30) 11/03/23 04:45
BUN 22 mg/dl (7-17) H 11/03/23 04:45
Creatinine 2.3 mg/dL (0.6-1.0) H 11/03/23 04:45
eGFR 21.62 11/03/23 04:45
Glucose 122 mg/dl (70-99) H 11/03/23 04:45
Calcium 8.5 mg/dl (8.4-10.2) 11/03/23 04:45
Phosphorus 5.5 mg/dl (2.5-4.5) H 11/02/23 02:54
Physical Exam
-
Vital Signs:
Vital Signs
Temp Pulse Resp BP Pulse Ox
97.7 F 108 23 142/65 95
11/03/23 03:17 11/03/23 07:00 11/03/23 07:00 11/03/23 07:00 11/03/23 07:34
Cardiovascular:: Regular rate and rhythm
Respiratory:: Bilateral: Coarse
Lung Excursion:: Normal
Abdomen:: Nontender and Soft
Bowel Sounds:: Normal
Extremity Edema:: +1: Bilateral:
[2023-11-03 09:14] LABS: Glucose - Point of Care 148 mg/dl (70-99)
--- NOTE | 2023-11-03 09:24 | W.PN.VS ---
Today's Communication / Plan
-
DC pending PT/OT
Assessment/Plan
-
Assessment: 73-year-old female POD #2 Left upper extremity DRIL procedure, on table LUE diagnostic arteriogram
Plan:
drain removed
DC pending PT/OT
Subjective Data
-
Date of Service: November 03, 2023
NAEO. resting comfortably. minimal drain output (40mL). no significant hematoma in thigh. ecchymosis to RUE but soft. biphasic radial
Objective Data
-
Vital Signs
Temp Pulse Resp BP Pulse Ox
97.7 F 108 23 142/65 95
11/03/23 03:17 11/03/23 07:00 11/03/23 07:00 11/03/23 07:00 11/03/23 07:34
Intake and Output
11/02/23 11/03/23 11/04/23
06:59 06:59 06:59
Intake Total 310 / 390 1140 / 1140
Output Total 400 / 400 70 / 70
Balance -90 / -10 1070 / 1070
Intake:
Oral fluids 20 / 20 480 / 480
IV fluids (Total) 290 / 370 160 / 160
NSS 290 / 370 160 / 160
Blood Product Amount Infused ( 500 / 500
mL)
Packed Rbc Leukoreduced Unit 250 / 250
[id number]
Packed Rbc Leukoreduced Unit 250 / 250
[id number]
Output:
Drain Output (Total) 270 / 270 55 / 55
Right Upper Leg [place] 270 / 270 55 / 55
Urine, Min 130 / 130 15 / 15
Urine, Voided 0 / 0
Other:
Transfused during hemodialysis?
Packed Rbc Leukoreduced Unit Yes
[id number]
Lab Results
11/03/23 04:45
11/03/23 04:45
Calcium 8.5 mg/dl (8.4-10.2) 11/03/23 04:45
Phosphorus 5.5 mg/dl (2.5-4.5) H 11/02/23 02:54
Magnesium 1.9 mg/dl (1.6-2.3) 11/02/23 02:54
Physical Exam
-
LUE: palpable thrill in fistula; biphasic radial
RLE: warm. incision intact with SUKHWINDER; drain serosang
--- NOTE | 2023-11-03 09:36 | PTCARENOTE ---
R groin MATILDA drain removed by vascular surgeon @ bedside; covered w clean dressing. R groin SUKHWINDER dressing remains intact w green light blinking. L arm Tegaderm also removed by vascular surgeon; left ANSELMO per surgeon; stapled . Pt.'s to
bedside updated on plan of care. Awaiting PT/OT evals pending discharge needs. Pt. remains OOB to chair, tolerating position, w call herrera in reach.
[2023-11-03 11:54] LABS: Glucose - Point of Care 122 mg/dl (70-99)
--- NOTE | 2023-11-03 13:18 | CM ---
Addendum entered by Zulma Patel RN 11/03/23 13:44:
CM sent updated discharge document to [facility] in [place]. CM updated Sammie at [facility] that patient is being discharged.
Addendum entered by Zulma Patel RN 11/03/23 13:36:
[facility] has accepted.
Original Note:
Plan for discharge today. Patient referred to [facility] for PT/OT and wound care. CM sent referral via [facility].
--- NOTE | 2023-11-03 13:46 | PTCARENOTE ---
Discharge paper work compelted w patient and @ bedside. PIV and monitor technician removed. Pt. d/c'd to home w husbands via wheelchair w staff escort and pt. belongings. No further needs from this RN.
== END 2023-11-03 14:00 | disposition home health service (06) | DRG 252 ==
LOC: ICU 19:43
PROVIDERS: Nurse Practitioner; Nurse Practitioner Acute Care; ADMITTING PHYSICIAN Surgery Vascular Surgery; CONSULT PHYSICIAN Internal Medicine; CONSULT PHYSICIAN Specialist; FAMILY PHYSICIAN Family Medicine
PROC: 0318094 Bypass Left Brachial Artery to Left Lower Arm Artery with Autologous Venous Tissue, Open Approach (ICD-10-PCS; 2023-11-01)
PROC: 30233N1 Transfusion of Nonautologous Red Blood Cells into Peripheral Vein, Percutaneous Approach (ICD-10-PCS; 2023-11-02)
DX: T82.898A Other specified complication of vascular prosthetic devices, implants and grafts, initial encounter (principal); N18.6 End stage renal disease; Z99.2 Dependence on renal dialysis; Y83.2 Surgical operation with anastomosis, bypass or graft as the cause of abnormal reaction of the patient, or of later complication, without mention of misadventure at the time of the procedure
CPT/HCPCS: 36838; 71045; 75710; 80048; 82962; 83735; 84100; 85027; 85610; 85730; 86850; 86900; 86901; 86920; 87070; 93970; 97163; 97166; C1760; C1769; C1887; C1894; G0257; P9016; P9047; Q5106; Q9967

== ENCOUNTER → 2023-11-22 10:37 | Outpatient (REF) | payer MEDICARE, OTHER, SELFPAY | LOC: RAD 10:37 | PROVIDERS: ATTENDING PHYSICIAN Physician Assistant; FAMILY PHYSICIAN Family Medicine | DX: T82.898A Other specified complication of vascular prosthetic devices, implants and grafts, initial encounter (principal); I77.0 Arteriovenous fistula, acquired | CPT/HCPCS: 93990 ==

== ENCOUNTER → 2024-02-21 12:50 | Outpatient (REF) | payer MEDICARE, OTHER, SELFPAY | LOC: RCS 12:50 | PROVIDERS: ATTENDING PHYSICIAN Internal Medicine Cardiovascular Disease; FAMILY PHYSICIAN Family Medicine | DX: I51.89 Other ill-defined heart diseases (principal); I50.30 Unspecified diastolic (congestive) heart failure; I10 Essential (primary) hypertension; I34.0 Nonrheumatic mitral (valve) insufficiency | CPT/HCPCS: 93306 ==

== ENCOUNTER → 2024-07-10 15:00 | Outpatient (REF) | payer MEDICARE, OTHER, SELFPAY | LOC: RAD 15:00 | PROVIDERS: ATTENDING PHYSICIAN Physician Assistant; FAMILY PHYSICIAN Family Medicine | DX: I77.0 Arteriovenous fistula, acquired (principal) | CPT/HCPCS: 93990 ==

== ENCOUNTER → 2025-01-29 14:48 | Outpatient (REF) | payer MEDICARE, OTHER, SELFPAY | LOC: RAD 14:48 | PROVIDERS: ATTENDING PHYSICIAN Physician Assistant; FAMILY PHYSICIAN Family Medicine | DX: I77.0 Arteriovenous fistula, acquired (principal) | CPT/HCPCS: 93990 ==